=== PATIENT | female | born 1950 | race Two or more races ===

== ENCOUNTER 2024-07-28 12:05 | Emergency (ER) | payer MEDICAID, SELFPAY ==
[2024-07-28 12:19] VITALS: BP 142/76; PULSE 75; RESP 17; TEMP 36.9; O2SAT 98; BMI 28.7
--- NOTE | 2024-07-28 12:27 | EDNOTE_ITS ---
ED Wound/Laceration-RME/HPI General Chief Complaint: Wound/Laceration Stated Complaint: RIGHT ARM SKIN TEAR X SUNDAY Time Seen by Provider: 07/28/24 12:09 Arrival date/time: 07/28/24 12:05 74-year-old female presents the emergency department today for complaints of skin tear right forearm on Sunday patient reports no direct trauma or fall Limitations: no limitations Related Data Previous Rx's ?Medication ?Instructions ?Recorded cephalexin 250 mg capsule 250 mg PO BID 7 days #14 cap s 07/28/24 Allergies Allergy/AdvReac Type Severity Reaction Status Date / Time No Known Allergies Allergy Verified 07/28/24 12:09 Review of Systems Review of Systems Systems Reviewed: All systems reviewed, normal except as documented Constitutional Constitutional: Reports system reviewed and no additional complaints, except as documented, Denies fever(s) and Denies headache(s) Eyes Eyes: Reports system reviewed and no additional complaints, except as documented and Denies blurry vision ENT Ears, Nose, Mouth, and Throat: Reports system reviewed and no additional complaints, except as documented, Denies headache(s), Denies nasal congestion and Denies nasal discharge Cardiovascular Cardiovascular: Reports system reviewed and no additional complaints, except as documented, Denies chest pain and Denies dyspnea Respiratory Respiratory: Reports system reviewed and no additional complaints, except as documented, Denies chest congestion, Denies cough and Denies dyspnea Gastrointestinal Gastrointestinal: Reports system reviewed and no additional complaints, except as documented and Denies abdominal pain Integumentary/Breasts Skin/Breast: Reports system reviewed and no additional complaints, except as documented, Denies rash and Reports wounds (Skin tear right forearm) Neurologic Neurologic: Reports system reviewed and no additional complaints, except as documented, Reports as per HPI and Denies headache(s) Past Medical History Past Medical History NEUROLOGIC: Negative Neurological Disorders CARDIAC: Negative Cardiac Disorders Social History SMOKING STATUS: Never smoker ED Exam General Limitations: Present no limitations General appearance: Present alert and in no apparent distress Head Head exam: Present atraumatic, normocephalic and normal inspection Eye Eye exam: Present normal appearance, PERRL and EOMI; Absent conjunctival injection ENT ENT exam: Present normal exam, normal oropharynx and mucous membranes moist Neck Neck exam: Present normal inspection, full ROM and trachea midline Chest Chest inspection: Present normal inspection and symmetric chest wall rise Respiratory Respiratory exam: Present normal lung sounds bilaterally Cardiovascular Cardiovascular exam: Present regular rate, normal rhythm and normal heart sounds Abdominal Exam Abdominal exam: Present soft and normal bowel sounds; Absent distention, tenderness, guarding, rebound or rigidity Extremities Exam Extremities exam: Present full ROM, tenderness, normal capillary refill and other (Skin tear right forearm); Absent joint swelling Back Exam Back exam: Present normal inspection and full ROM Neurological Exam Neurological exam: Present alert, oriented X3 and CN II-XII intact Psychiatric Psychiatric exam: Present normal affect and normal mood Skin Skin exam: Present warm, dry and other (Skin tear right forearm) Course Quality Measures none Vital Signs Vital signs: Vital Signs Temperature 98.4 F 07/28/24 12:19 Pulse Rate 75 07/28/24 12:19 Respiratory Rate 17 07/28/24 12:19 Blood Pressure 142/76 H 07/28/24 12:19 Pulse Oximetry (%) 98 07/28/24 12:19 Oxygen Delivery Method Room Air 07/28/24 12:19 O2 saturation 98% r.a wnl Wound / Laceration MDM Narrative MDM Narrative:: 74-year-old female presents the emergency department today for complaints of skin tear right forearm on Sunday patient reports no direct trauma or fall On exam patient has skin tear to the right forearm no active bleeding Dermabond and Steri-Strips applied patient be discharged home with a short course of antibiotics Patient discharged home in no distress to follow-up with primary care doctor in the next 24 to 48 hours and for any worsening symptoms to return to the ER immediately Patient data External records reviewed:: [facility] previous records Clinical information provided by:: patient Social determinants that could affect healthcare access:: none Patient has the following chronic illnesses:: none How is presenting disease/condition affected by chronic disease/condition?: no chronic disease Evaluation data The following diagnostics were reviewed and interpreted by me:: other (specify) (N/A) Lab and/or radiology exams considered but not ordered:: Consider not ordered Interpretation Summary: N/A Medications / Prescriptions Medications or Prescriptions considered but not ordered:: Given Medication administrations:: Given Consultations Consultation(s) initiated? (list below): No Diagnosis Wound Differential Diagnosis: laceration, abrasion and avulsion of skin Most likely diagnosis given after review of the tests above:: Avulsion skin skin tear Admission Indicated Admission indicated?: not indicated Admission Request Was there a request for admission?: No Disposition Plan Disposition Plan: Discharge Discharge Attestation Discharge Attestation: The patient and all family members were given an opportunity to ask questions and understood the discharge instructions. Discharge instructions specifically effects, indications for sooner follow up or return to the emergency department, and the expected course of current diagnosis. Patient condition: Stable Discharge Plan Plan Patient Disposition: HOME (Self Care) Discharge Disposition comment: Stable Prescriptions/Referrals Prescriptions/Med Rec: New cephalexin 250 mg capsule 250 mg PO BID 7 Days Qty: 14 0RF Problem List Clinical Impression: Skin tear of right forearm without complication Patient/Caregiver Discharge Instructions Education Materials: ED Laceration: All Closures Additional Instructions: Please follow up with your primary care doctor in the next 24-48hrs for any worsening symptoms return here immediately Print Language: Maltese Stand Alone Forms: Frida Award Info., Patient Portal Info Letter PA/[employer] Supervising Physician PA/[employer]PER[employer] Supervising Physician: dr [email or web address]
== END 2024-07-28 14:36 | disposition home or self-care (01) ==
LOC: SERX 12:59
PROVIDERS: Emergency Provider Family Medicine; PCP Family Medicine
DX: S51.811A Laceration without foreign body of right forearm, initial encounter (principal); X58.XXXA Exposure to other specified factors, initial encounter
CPT/HCPCS: 12001; 99283